=== PATIENT | male | born 1985 | race Caucasian/White ===

== ENCOUNTER 2019-09-17 00:57 | Emergency (ER) | payer MEDICAID ==
[2019-09-17 01:04] VITALS: BP 144/82; PULSE 80
[2019-09-17] MEDS ORDERED: Famotidine 20 MG/2 ML SDV IVPUSH ONE (01:28)
[2019-09-17] MEDS ORDERED: GI Cocktail Oral Solution 30 ML PO ONE (01:28)
[2019-09-17 01:39] LABS: ANION GAP 14.2; CHLORIDE,CL 101 mmol/L (101-111); SODIUM,NA 137 mmol/L (135-145)
--- NOTE | 2019-09-17 01:55 | EDM.PDOC ---
ED HPI GENERAL MEDICAL PROBLEM - General Chief Complaint: Chest Pain Stated Complaint: CENTER OF RIB CAGE HURTS Time Seen by Provider: 09/17/19 01:15 Source of Information: Reports: Patient History Limitations: Reports: No Limitations - History of Present Illness INITIAL COMMENTS - FREE TEXT/NARRATIVE: ED with c/o of chest pain, painting to epigastric area, no fever or chills, no vomiting. Tried peptobismul at home and did not help, Beff jerky and jalepeno peppers at supper tonight. Epigastric Pain Score (Numeric/FACES): 5 - Related Data Allergies Allergy/AdvReac Type Severity Reaction Status Date / Time ampicillin Allergy Cannot Verified 09/17/19 01:04 Remember Home Meds: Home Meds Albuterol [IJD: Ventolin HFA] 2 puff INH QID PRN 04/29/16 [History] Past Medical History Respiratory History: Reports: Asthma Social & Family History - Tobacco Use Smoking Status *Q: Never Smoker Second Hand Smoke Exposure: No - Caffeine Use Caffeine Use: Reports: Soda - Recreational Drug Use Recreational Drug Use: No ED ROS GENERAL - Review of Systems Review Of Systems: Comprehensive ROS is negative, except as noted in HPI. ED EXAM, GENERAL - Physical Exam Exam: See Below Exam Limited By: No Limitations General Appearance: Alert, Mild Distress Eye Exam: Bilateral Eye: EOMI Ears: Normal External Exam, Hearing Grossly Normal Nose: Normal Inspection Throat/Mouth: Other (poor dentation) Head: Atraumatic, Normocephalic Neck: Normal Inspection Respiratory/Chest: No Respiratory Distress, Lungs Clear, Normal Breath Sounds Cardiovascular: Normal Peripheral Pulses, Regular Rate, Rhythm GI/Abdominal: Normal Bowel Sounds, Soft, Tender (mild epigastric). No: Distended, Guarding, Rigid, Rebound Extremities: Normal Inspection Neurological: Alert, Oriented Psychiatric: Normal Affect Skin Exam: Warm, Dry, Intact, Normal Color Course - Vital Signs Last Recorded V/S: Last Vital Signs Temp 96.3 F L 09/17/19 01:00 Pulse 80 09/17/19 01:00 Resp 18 09/17/19 01:00 BP 144/82 H 09/17/19 01:00 Pulse Ox 98 09/17/19 01:00 - Orders/Labs/Meds Orders: Active Orders 24 hr Category Date Time Status EKG 12 Lead [EKG Documentation Completion] [RC] URGENT Care 09/17/19 01:07 Active Labs: Laboratory Tests 09/17/19 09/17/19 09/17/19 Range/Units 01:10 01:10 01:10 WBC 13.4 H (5.0-10.0) 10^3/uL RBC 4.91 (4.6-6.2) 10^6/uL Hgb 14.4 D (14.0-18.0) g/dL Hct 42.3 (40.0-54.0) % MCV 86.2 (80-100) fL MCH 29.3 (27.0-34.0) pg MCHC 34.0 (33.0-35.0) g/dL Plt Count 400 (150-450) 10^3/uL Neut % (Auto) 44.1 (42.2-75.2) % Lymph % (Auto) 45.6 (20.5-50.1) % [place] % (Auto) 7.2 (2-8) % Eos % (Auto) 2.7 (1.0-3.0) % Baso % (Auto) 0.4 (0.0-1.0) % Sodium 137 (135-145) mmol/L Potassium 3.2 L (3.6-5.0) mmol/L Chloride 101 (101-111) mmol/L Carbon Dioxide 25.0 (21.0-31.0) mmol/L Anion Gap 14.2 BUN 16 (7-18) mg/dL Creatinine 1.1 (0.6-1.3) mg/dL Est Cr Clr Drug Dosing 90.97 mL/min Estimated GFR (MDRD) > 60 BUN/Creatinine Ratio 14.54 Glucose 114 H (74-105) mg/dL Calcium 9.0 (8.4-10.2) mg/dl Total Bilirubin 0.9 (0.2-1.0) mg/dL AST 72 H (10-42) IU/L ALT 110 H (10-60) IU/L Alkaline Phosphatase 51 (42-121) IU/L Troponin I 0.02 (0.00-0.02) ng/ml Total Protein 7.5 (6.7-8.2) g/dl Albumin 4.4 (3.2-5.5) g/dl Globulin 3.1 Albumin/Globulin Ratio 1.42 Amylase 48 (28-100) U/L Meds: Medications Discontinued Medications Generic Name Dose Route Start Last Admin Trade Name Devika PRN Reason Stop Dose Admin Al Hydroxide/Mg Hydroxide 30 ml 09/17/19 01:28 09/17/19 01:37 Gi Cocktail PO 09/17/19 01:29 30 ml ONETIME ONE Administration Famotidine 20 mg 09/17/19 01:28 09/17/19 01:32 Pepcid IVPUSH 09/17/19 01:29 20 mg ONETIME ONE Administration Departure - Departure Time of Disposition: 01:49 Disposition: Home, Self-Care 01 Condition: Good Clinical Impression: Acute epigastric pain - Discharge Information *PRESCRIPTION DRUG MONITORING PROGRAM REVIEWED*: No *COPY OF PRESCRIPTION DRUG MONITORING REPORT IN PATIENT MARYAM: No Instructions: Food Choices for Gastroesophageal Reflux Disease, Adult Additional Instructions: light bland low fat diet Over counter pepcid daily as needed for indigestion symptoms, follow up recheck liver enzymes in clinic one week Sepsis Event Note - Evaluation Sepsis Screening Result: No Definite Risk - Focused Exam Vital Signs: Vital Signs Temp Pulse Resp BP Pulse Ox 09/17/19 01:00 96.3 F L 80 18 144/82 H 98 Date Exam was Performed: 09/17/19 Time Exam was Performed: 01:49 - My Orders Last 24 Hours: My Active Orders 09/17/19 01:07 EKG 12 Lead [EKG Documentation Completion] [RC] URGENT - Assessment/Plan Last 24 Hours: My Active Orders 09/17/19 01:07 EKG 12 Lead [EKG Documentation Completion] [RC] URGENT
== END 2019-09-17 01:56 | disposition home or self-care (01) ==
LOC: DL.ED 00:57
DX: R10.13 Epigastric pain (principal); J45.909 Unspecified asthma, uncomplicated; Z88.1 Allergy status to other antibiotic agents
CPT/HCPCS: 36415; 80053; 82150; 84484; 85025; 93005; 96374; 99285; A9270; J3490

== ENCOUNTER 2022-06-26 22:18 | Emergency (ER) | payer MEDICAID ==
[2022-06-26] MEDS ORDERED: Sodium Chloride 0.9% 10 ML Syringe FLUSH PRN (22:38)
[2022-06-26 22:46] VITALS: BP 120/70; PULSE 98
== END 2022-06-26 23:55 | disposition home or self-care (01) ==
LOC: DL.ED 22:18
DX: R07.89 Other chest pain (principal); Z88.0 Allergy status to penicillin
CPT/HCPCS: 36415; 80053; 84484; 85025; 85610; 85730; 93005; 99285; J3490